=== PATIENT | male | born 1970 | race Caucasian/White ===

== ENCOUNTER 2018-09-19 13:48 | Emergency (ER) | payer SELFPAY ==
[~2018-09-19] VITALS: Ht 182.9 cm; Wt 129.3 kg
[2018-09-19] MEDS ORDERED: ROBAXIN-750750 MG PO (14:28)
== END 2018-09-19 14:35 | disposition home or self-care (01) ==
LOC: ED 13:48
DX: M54.5 Low back pain (principal)
CPT/HCPCS: 99283